=== PATIENT | male | born 1950 ===

== ENCOUNTER 2016-12-13 17:06 | Emergency (ER) | payer MEDICAID, OTHER ==
[2016-12-13 17:18] VITALS: BP 136/79; PULSE 88; RESP 18; TEMP 98.5; O2SAT 98
--- NOTE | 2016-12-13 18:07 | ED PDOC ---
HPI: General Adult Time Seen by Provider: 12/13/16 17:13 Chief Complaint (Nursing): Back Pain Chief Complaint (Provider): Neck Pain History Per: Patient History/Exam Limitations: no limitations Current Symptoms Are (Timing): Still Present Additional Complaint(s): 18:00 Daryl Iniguez is a 66 year old male with a history of arthritis and HTN that presents to the ED with a chief complaint of right-sided neck pain to the back of his neck. Patient reports that he has had chronic neck pain for years, but that his pain has greatly worsened over the past week. He states that the pain worsens upon movement, and that he has not taken any medication in an attempt to relieve his pain. Past Medical History Reviewed: Historical Data, Nursing Documentation, Vital Signs Vital Signs: Last Vital Signs Temp 98.5 F 12/13/16 17:09 Pulse 88 12/13/16 17:09 Resp 18 12/13/16 17:09 BP 136/79 12/13/16 17:09 Pulse Ox 98 12/13/16 18:10 - Medical History PMH: Arthritis, HTN - Family History Family History: States: Unknown Family Hx - Home Medications Home Medications: Ambulatory Orders Medication Instructions Recorded Allopurinol [Allopurinol] 100 mg PO DAILY 12/13/14 Ciprofloxacin [Cipro] 500 mg PO BID #20 tab 12/13/14 Lisinopril [Lisinopril] 10 mg PO DAILY 12/13/14 Ibuprofen [Motrin] 600 mg PO TID PRN #30 tab 04/12/16 traMADol [Ultram] 50 mg PO Q8 PRN #12 tab 04/12/16 Cyclobenzaprine [Cyclobenzaprine 10 mg PO TID #20 tab 12/13/16 HCl] Ibuprofen [Motrin] 600 mg PO Q6 #20 tab 12/13/16 - Allergies Allergies/Adverse Reactions: Allergies Allergy/AdvReac Type Severity Reaction Status Date / Time No Known Allergies Allergy Verified 04/12/16 10:16 Review of Systems Musculoskeletal: Positive for: Neck Pain (right-sided neck pain) Physical Exam - Reviewed Nursing Documentation Reviewed: Yes Vital Signs Reviewed: Yes - Physical Exam Appears: Positive for: Non-toxic, No Acute Distress Head Exam: Positive for: ATRAUMATIC, NORMOCEPHALIC Skin: Positive for: Normal Color, Warm Neck: Negative for: Normal (TTP back, right side of his neck, muscle spam), Painless ROM (painful ROM) Neurologic/Psych: Positive for: Alert, Oriented - ECG O2 Sat by Pulse Oximetry: 98 (RA) Pulse Ox Interpretation: Normal Medical Decision Making Medical Decision Makin:07 Impression: Muscle Spasm Initial Plan: * Ibuprofen 600 mg PO * Flexeril 10 mg PO * X-Ray C-Spine * Reevaluation Advised patient to use warm compresses and to massage afflicted area in order to relieve muscle knot. XR: NAD, as read by CHAD Pt reports feeling improved on re-eval Scribe Attestation: Documented by Joslyn Gibbs, acting as a scribe for Gabriela Calderon PA-C. Provider Scribe Attestation: All medical record entries made by the Scribe were at my direction and personally dictated by me. I have reviewed the chart and agree that the record accurately reflects my personal performance of the history, physical exam, medical decision making, and the department course for this patient. I have also personally directed, reviewed, and agree with the discharge instructions and disposition. Disposition - Clinical Impression Clinical Impression: Cervical strain - Patient ED Disposition Is Patient to be Admitted: No - Disposition Disposition: Routine/Home Disposition Time: 19:56 Condition: GOOD Prescriptions: Cyclobenzaprine [Cyclobenzaprine HCl] 10 mg PO TID #20 tab Ibuprofen [Motrin] 600 mg PO Q6 #20 tab Instructions: Cervical Strain (GEN) Print Language: AUSTRIAN - POA Present On Arrival: None
--- NOTE | 2016-12-14 08:48 | RAD ---
PROCEDURE: Cervical Spine Radiographs. HISTORY: Pain. COMPARISON: None. FINDINGS: BONES: Alignment maintained. No fracture. Dens Intact. DISC SPACES: Multilevel disc space narrowing and spondylosis. SOFT TISSUES: Normal. No prevertebral soft tissue swelling. OTHER FINDINGS: None. IMPRESSION: Multilevel disc space narrowing and spondylosis.
== END 2016-12-13 21:09 | disposition home or self-care (01) ==
LOC: H.ER 17:06
DX: M54.2 Cervicalgia (principal); M62.838 Other muscle spasm; I10 Essential (primary) hypertension

== ENCOUNTER 2016-12-21 09:36 | Emergency (ER) | payer OTHER ==
[2016-12-21 09:40] VITALS: BP 142/91; PULSE 94; TEMP 98.3; O2SAT 98
[2016-12-21 09:41] VITALS: BMI 26.2
[2016-12-21 10:01] VITALS: RESP 16
--- NOTE | 2016-12-21 10:26 | ED PDOC ---
HPI: Male Pain Time Seen by Provider: 12/21/16 10:15 Chief Complaint (Nursing): Male Genitourinary Chief Complaint (Provider): Male Genitourinary History Per: Patient History/Exam Limitations: no limitations Onset/Duration Of Symptoms: Days (x14) Additional Complaint(s): 10:15 Daryl Iniguez, 66 year old male presents to the ED on 12/21/16 with problems urinating occurring 14 days prior to arrival. The patient states that he has no difficulty passing urine but feels as if he's not emptying his bladder completely. The patient has a past medical history inclusive of hypertension for which he is prescribed Lisinopril, 10 mg. The patient denies any fever, chills, chest pain, back pain, hematuria, or burning in the urine. Of note, the patient has visited the ED 1 week prior to arrival for neck pain for which he was prescribed Ibuprofen and a muscle relaxant. 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 PMD: Marcus Dawson MD Past Medical History Reviewed: Historical Data, Nursing Documentation, Vital Signs Vital Signs: Last Vital Signs Temp 98.3 F 12/21/16 09:57 Pulse 94 H 12/21/16 09:57 Resp 16 12/21/16 09:57 BP 142/91 H 12/21/16 09:57 Pulse Ox 98 12/21/16 09:57 - Medical History PMH: Arthritis, HTN - Surgical History Surgical History: Hernia Repair, Tonsillectomy - Family History Family History: States: Unknown Family Hx - Home Medications Home Medications: Ambulatory Orders Medication Instructions Recorded Allopurinol [Allopurinol] 100 mg PO DAILY 12/13/14 Ciprofloxacin [Cipro] 500 mg PO BID #20 tab 12/13/14 Lisinopril [Lisinopril] 10 mg PO DAILY 12/13/14 Ibuprofen [Motrin] 600 mg PO TID PRN #30 tab 04/12/16 traMADol [Ultram] 50 mg PO Q8 PRN #12 tab 04/12/16 Cyclobenzaprine [Cyclobenzaprine 10 mg PO TID #20 tab 12/13/16 HCl] Ibuprofen [Motrin] 600 mg PO Q6 #20 tab 12/13/16 Tamsulosin [Flomax] 0.4 mg PO DAILY #21 cap 12/21/16 - Allergies Allergies/Adverse Reactions: Allergies Allergy/AdvReac Type Severity Reaction Status Date / Time No Known Allergies Allergy Verified 04/12/16 10:16 Review of Systems ROS Statement: Except As Marked, All Systems Reviewed And Found Negative Constitutional: Negative for: Fever, Chills Cardiovascular: Negative for: Chest Pain Genitourinary Male: Positive for: Other (not emptying bladder completely ). Negative for: Dysuria, Hematuria Musculoskeletal: Negative for: Back Pain Physical Exam - Reviewed Nursing Documentation Reviewed: Yes Vital Signs Reviewed: Yes - Physical Exam Appears: Positive for: Non-toxic, No Acute Distress Head Exam: Positive for: ATRAUMATIC, NORMOCEPHALIC Skin: Positive for: Normal Color, Warm, Dry Eye Exam: Positive for: Normal appearance ENT: Positive for: Normal ENT Inspection, Other (moist mucous membranes) Neck: Positive for: Normal, Painless ROM, Supple Cardiovascular/Chest: Positive for: Regular Rate, Rhythm, Chest Non Tender Respiratory: Positive for: Normal Breath Sounds. Negative for: Respiratory Distress Gastrointestinal/Abdominal: Positive for: Normal Exam, Soft. Negative for: Tenderness Back: Positive for: Normal Inspection. Negative for: L CVA Tenderness, R CVA Tenderness Extremity: Positive for: Normal ROM Lymphatic: Negative for: Adenopathy Neurologic/Psych: Positive for: Alert, Oriented (x3) - ECG O2 Sat by Pulse Oximetry: 98 (RA) Pulse Ox Interpretation: Normal Medical Decision Making Medical Decision Makin:15 Initial Impression: 66 year old male with problems urinating. Initial Plan: * ED Urine Dipstick (POC) Stat * Flomax 0.4 mg PO Once Stat * Urine Culture Stat * Urinalysis Stat * Reevaluation Scribe Attestation: Documented by Deidre Pimentel, acting as a scribe for Latosha Ruiz MD. Provider Scribe Attestation: All medical record entries made by the Scribe were at my direction and personally dictated by me. I have reviewed the chart and agree that the record accurately reflects my personal performance of the history, physical exam, medical decision making, and the department course for this patient. I have also personally directed, reviewed, and agree with the discharge instructions and disposition. Disposition - Clinical Impression Clinical Impression: Bladder outflow obstruction - Patient ED Disposition Is Patient to be Admitted: No Doctor Will See Patient In The: Office Counseled Patient/Family Regarding: Diagnosis, Need For Followup, Rx Given - Disposition Referrals: Richard Palacios Jr., MD [Staff Provider] - Marcus Dawson MD [Family Provider] - Disposition: Routine/Home Disposition Time: 10:45 Condition: STABLE Prescriptions: Tamsulosin [Flomax] 0.4 mg PO DAILY #21 cap Instructions: Benign Prostatic Hypertrophy (ED) Print Language: ALBANIAN - POA Present On Arrival: None
[2016-12-21 10:48] LABS: RBC URINE 1 /hpf (0-3); URINE BILIRUBIN NEGATIVE (NEGATIVE); URINE BLOOD SMALL (NEGATIVE); URINE COLOR STRAW (YELLOW); URINE GLUCOSE (UA) NEG (Normal); URINE KETONE NEGATIVE (NEGATIVE); URINE LEUKOCYTE ESTERASE NEG Leu/uL (Negative); URINE PROTEIN NEGATIVE (NEGATIVE); URINE UROBILINOGEN 0.2-1.0 mg/dL (0.2-1.0)
== END 2016-12-21 11:02 | disposition home or self-care (01) ==
LOC: H.ER 09:36
DX: N32.0 Bladder-neck obstruction (principal); I10 Essential (primary) hypertension